=== PATIENT | male | born 1995 | race Two or more races ===

== ENCOUNTER 2017-12-29 09:58 | Emergency (ER) | payer OTHER ==
[~2017-12-29] VITALS: Ht 175.3 cm; Wt 131.1 kg
[2017-12-29 10:39] VITALS: BP 114/74
--- NOTE | 2017-12-29 10:39 | Emergency Room Report ---
History of Present Illness General Chief Complaint: Skin Rash/Abscess Source: Patient Present Illness HPI Patient presents with complaints of foreign body in the left middle finger this happened at work it was a wooden object Patient is right-hand dominant He had 1/10 pain localized to the foreign body area denies any other trauma denies any fevers or chills this happened essentially prior to arrival patient is unknown regarding his last tetanus shot however he was up-to-date as far as he recalls Allergies: Coded Allergies: PENICILLINS (Verified Allergy, Unknown, 12/29/17) Patient History Past Medical History: see triage record Pertinent Family History: none Reviewed Nursing Documentation: PMH: Agreed, PSxH: Agreed Nursing Documentation-PMH Past Medical History: No History, Except For Hx Diabetes: Yes Review of Systems All Other Systems: negative except mentioned in HPI Physical Exam Vital Signs Date Time Temp Pulse Resp B/P (MAP) Pulse Ox O2 Delivery O2 Flow Rate FiO2 12/29/17 10:12 98.1 72 18 114/74 97 Room Air Sp02 EP Interpretation: reviewed, normal General Appearance: well appearing, no apparent distress Head: normocephalic, atraumatic Eyes: bilateral eye PERRL, bilateral eye EOMI ENT: hearing grossly normal, normal pharynx Neck: supple Musculoskeletal: normal inspection Neurologic: alert, oriented x3 Skin: other - Foreign body splinter visible approximately quarter centimeter palmar aspect mid left middle finger Lymphatic: no adenopathy Medical Decision Making Diagnostic Impression: Primary Impression: foreign body, removal ER Course After cleansing and prepping the area with alcohol prep Using an 18-gauge needle the splinter was treated using forceps the foreign body was then removed in its entirety Patient tolerated procedure well A cover dressing was applied on top Patient is stable to return tomorrow after further healing of the area today Last Vital Signs Date Time Temp Pulse Resp B/P (MAP) Pulse Ox O2 Delivery O2 Flow Rate FiO2 12/29/17 10:12 98.1 72 18 114/74 97 Room Air Status: improved Disposition: HOME, SELF-CARE Condition: Improved Patient Instructions: Sliver Removal, Care After Additional Instructions: Patient is provided with the discharge instructions notified to follow up with primary doctor in the next 2-3 days otherwise return to the er with any worsening symptoms. Please note that this report is being documented using [employer] technology. This can lead to erroneous entry secondary to incorrect interpretation by the dictating instrument. GLORIA HOUSER D.O. Dec 29, 2017 10:39
[2017-12-29 10:40] VITALS: BP 114/74
== END 2017-12-29 10:40 | disposition home or self-care (01) ==
LOC: EMR 10:25
DX: S60.453A Superficial foreign body of left middle finger, initial encounter (principal); W45.8XXA Other foreign body or object entering through skin, initial encounter; Y92.9 Unspecified place or not applicable; E11.9 Type 2 diabetes mellitus without complications
CPT/HCPCS: 99282